=== PATIENT | male | born 2000 | race Caucasian/White ===

== ENCOUNTER 2020-12-24 01:30 | Emergency (ER) | payer SELFPAY ==
[~2020-12-24] VITALS: Ht 170.2 cm; Wt 73.6 kg
[2020-12-24 01:33] VITALS: TEMP 98.2
[2020-12-24 02:01] VITALS: BP 132/80; PULSE 65
== END 2020-12-24 02:05 | disposition home or self-care (01) ==
LOC: COL.ER 01:30
DX: S61.011A Laceration without foreign body of right thumb without damage to nail, initial encounter (principal); F17.210 Nicotine dependence, cigarettes, uncomplicated; Z23 Encounter for immunization; W26.8XXA Contact with other sharp object(s), not elsewhere classified, initial encounter; Y92.59 Other trade areas as the place of occurrence of the external cause; Y93.G1 Activity, food preparation and clean up; Y99.0 Civilian activity done for income or pay